=== PATIENT | female | born 1960 | race American Indian/Alaskan Native ===

== ENCOUNTER 2016-12-04 08:23 | Emergency (ER) | payer OTHER ==
[2016-12-04 08:35] VITALS: BP 129/70; PULSE 89; RESP 20; TEMP 98; O2SAT 99
[2016-12-04 11:01] LABS: BASO # 0.1 K/uL (0.0-0.2); EOS # 0.1 K/uL (0.0-0.7); HEMATOCRIT 35.5 % (34.0-47.0); LYMPH # 1.5 K/uL (1.0-4.3); LYMPH % 16.1 % (20.0-40.0); MEAN CORPUSCULAR HEMOGLOBIN 24.5 pg (27.0-31.0); MEAN PLATELET VOLUME 7.8 fl (7.2-11.7); MONO # 0.6 K/uL (0.0-0.8); MONO % 6.4 % (0.0-10.0); NEUT # 6.9 K/uL (1.8-7.0); NEUT % 75.5 % (50.0-75.0); RED CELL DISTRIBUTION WIDTH 16.8 % (11.5-14.5); WHITE BLOOD COUNT 9.2 K/uL (4.8-10.8)
[2016-12-04 11:11] LABS: ALB/GLOB RATIO 1.1 (1.0-2.1); ALKALINE PHOSPHATASE 109 U/L (38-126); ALT/SGPT 30 U/L (9-52); AST/SGOT 27 U/L (14-36); BILIRUBIN,TOTAL 0.3 mg/dl (0.2-1.3); BLOOD UREA NITROGEN 16 mg/dl (7-17); CALCIUM 9.2 mg/dL (8.4-10.2); CARBON DIOXIDE 20 mmol/L (22-30); CHLORIDE 111 mmol/L (98-107); GFR AFRICAN-AMERICAN > 60; GLUCOSE,RANDOM 95 mg/dL (65-105); POTASSIUM 4.7 MMOL/L (3.6-5.0); SODIUM 142 mmol/l (132-148)
--- NOTE | 2016-12-04 11:25 | CT ---
PROCEDURE: CT HEAD WITHOUT CONTRAST. HISTORY: Headache COMPARISON: None available. TECHNIQUE: Axial computed tomography images were obtained through the head/brain without intravenous contrast. Radiation dose: Total exam DLP = 1000.71 MGy-cm. This CT exam was performed using one or more of the following dose reduction techniques: Automated exposure control, adjustment of the mA and/or kV according to patient size, and/or use of iterative reconstruction technique. FINDINGS: HEMORRHAGE: No intracranial hemorrhage. BRAIN: There is cystic encephalomalacia in the left posterior basal ganglia with volume loss and ex vacuo dilatation of the left lateral ventricle. There is no mass, mass effect or abnormal extra-axial fluid collection. VENTRICLES: There is mild nonspecific prominence of bifrontal extra-axial CSF spaces. CALVARIUM: The skull base and calvarium are normal. PARANASAL SINUSES: Predominantly clear. MASTOID AIR CELLS: Predominantly clear. OTHER FINDINGS: None. IMPRESSION: No acute intracranial abnormality. 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
--- NOTE | 2016-12-04 12:06 | ED PDOC ---
HPI: Headache Time Seen by Provider: 12/04/16 09:00 Chief Complaint (Nursing): Headache Chief Complaint (Provider): headache History Per: Patient History/Exam Limitations: no limitations Onset/Duration Of Symptoms: Days Current Symptoms Are (Timing): Still Present Severity: Moderate Quality: Tightness, Pressure Associated Symptoms: Photophobia, Nausea. denies: Blurred Vision, Vomiting Additional History Per: Patient Additional Complaint(s): 56 y/o female with hx Migraine, undomiciled complaining of migraine headache for 1 day described as pressure and tightness over bilateral temples and associated with nausea, photophobia, and phonophobia. Denies vomiting, weakness , visual changes. Did not take anything for pain, and denies having any prescriptions for migraine at home. Patient also has history of CVA 7 years ago with some right sided weakness. She denies alcohol, does smoke tobacco, and uses crack/cocaine intermittently. Last cocaine 2 weeks ago. Past Medical History Vital Signs: Last Vital Signs Temp 98.0 F 12/04/16 08:35 Pulse 89 12/04/16 08:35 Resp 20 12/04/16 08:35 BP 129/70 12/04/16 08:35 Pulse Ox 99 12/04/16 08:35 - Medical History PMH: CVA, HTN, Migraine - Surgical History Other surgeries: Right Leg - Family History Family History: States: Unknown Family Hx - Social History Current smoker - smoking cessation education provided: Yes Alcohol: Other (hx abuse) Drugs: Cannabis, Cocaine - Allergies Allergies/Adverse Reactions: Allergies Allergy/AdvReac Type Severity Reaction Status Date / Time No Known Allergies Allergy Verified 12/04/16 08:27 Review of Systems ROS Statement: Except As Marked, All Systems Reviewed And Found Negative Neurological: Positive for: Headache Physical Exam - Physical Exam Appears: Positive for: Well, Non-toxic, No Acute Distress Skin: Positive for: Normal Color, Warm, Dry Eye Exam: Positive for: Normal appearance ENT: Positive for: Normal ENT Inspection Neck: Positive for: Normal Cardiovascular/Chest: Positive for: Regular Rate, Rhythm. Negative for: Gallop , Murmur, Friction Rub Respiratory: Positive for: Normal Breath Sounds. Negative for: Rales, Rhonchi, Wheezing Gastrointestinal/Abdominal: Positive for: Normal Exam Back: Positive for: Normal Inspection Extremity: Positive for: Other (right sided weakness) Neurologic/Psych: Positive for: Alert, Oriented - Laboratory Results Result Diagrams: 12/04/16 10:39 12/04/16 10:39 - ECG O2 Sat by Pulse Oximetry: 99 (RA) Pulse Ox Interpretation: Normal Medical Decision Making Medical Decision Making: Initial Impression: Migraine CAMACHO in the setting of past CVA Initial Plan: - Reglan - CT Head - Labs 10:09AM: CT Head Official Read Reviewed - no acute process. On reevaluation the patient is resting comfortably and denies complaint. Discussed labs, benign, and imaging (unremarkable for acute process), and discussed that she should use Motrin at home for pain control. Patient comfortable with the plan for discharge. All questions answered. Return with new /worsening complaints. 12:48 PM: Patient requested voucher for transportation Scribe Attestation: Documented by Oliva Pineda acting as a scribe for Valerie Garcia MD. Scribe Attestation: All medical record entries made by the Scribe were at my direction and personally dictated by me. I have reviewed the chart and agree that the record accurately reflects my personal performance of the history, physical exam, medical decision making, and the department course for this patient. I have also personally directed, reviewed, and agree with the discharge instructions and disposition. Disposition - Clinical Impression Clinical Impression: Migraine, Migraine headache - Patient ED Disposition Is Patient to be Admitted: No Doctor Will See Patient In The: Office Counseled Patient/Family Regarding: Studies Performed, Diagnosis, Need For Followup - Disposition Referrals: [facility] [Outside] [facility] [Outside] Moises Pagan MD [Staff Provider] - Disposition: Routine/Home Disposition Time: 11:40 Condition: IMPROVED Additional Instructions: follow up with your primary doctor/neurology as well take motrin for pain return to the ED with any worsening or concerning symptoms Instructions: Migraine Headache (ED)
== END 2016-12-04 13:43 | disposition home or self-care (01) ==
LOC: H.ER 08:23
DX: G43.909 Migraine, unspecified, not intractable, without status migrainosus (principal); R11.0 Nausea; I10 Essential (primary) hypertension; Z86.73 Personal history of transient ischemic attack (TIA), and cerebral infarction without residual deficits